=== PATIENT | male | born 1955 | race Caucasian/White ===

== ENCOUNTER → 2021-02-04 | Outpatient (CLI) | payer MEDICARE, OTHER ==
[~2021-02-04] MED LIST: DULOXETINE HCL60 MG PO; FENOFIBRATE160 MG PO; FLOMAX 0.4 MG0.4 MG PO; GABAPENTIN600 MG PO; HUMALOG100 UNIT/3 SC; HYDROCODON-ACE1 EAC4 PO; LEVOFLOXACIN500 MG PO; LOPRESSOR 25 MG25 MG PO; OXYCODONE HCL10 MG PO; OXYCONTIN20 MG PO; VICTOZA 3-0.6 MG/0.1 SQ; ZOCOR 40 MG TAB40 MG PO
== END ==
LOC: HEART 5 12-17 10:00
DX: I25.10 Atherosclerotic heart disease of native coronary artery without angina pectoris (principal); R55 Syncope and collapse; I08.1 Rheumatic disorders of both mitral and tricuspid valves
CPT/HCPCS: 93306

== ENCOUNTER → 2021-02-24 | Outpatient (CLI) | payer MEDICARE, OTHER ==
[2021-02-24 10:09] LABS: HEMOGLOBIN 15.2 gm/dl (14.0-17.5); RED BLOOD COUNT 4.69 M/UL (4.20-5.50); WHITE BLOOD COUNT 8.5 K/UL (4.5-11.0)
== END ==
LOC: LAB 09:30
PROVIDERS: Internal Medicine Cardiovascular Disease
DX: I25.5 Ischemic cardiomyopathy (principal); I25.10 Atherosclerotic heart disease of native coronary artery without angina pectoris; I10 Essential (primary) hypertension; I95.1 Orthostatic hypotension; R55 Syncope and collapse
CPT/HCPCS: 36415; 71046; 80048; 85025

== ENCOUNTER 2021-02-26 07:09 | Outpatient (CLI) | payer MEDICARE, OTHER ==
[~2021-02-26] VITALS: Ht 185.4 cm; Wt 104.3 kg
[2021-02-26] MEDS ORDERED: FENOFIBRATE160 MG PO (07:37)
[2021-02-26] MEDS ORDERED: OXYCODONE HCL10 MG PO (07:37)
[2021-02-26] MEDS ORDERED: OXYCONTIN20 MG PO (07:37)
[2021-02-26] MEDS ORDERED: LOPRESSOR 25 MG25 MG PO (07:40)
[2021-02-26] MEDS ORDERED: FLOMAX 0.4 MG0.4 MG PO (07:40)
[2021-02-26] MEDS ORDERED: DULOXETINE HCL60 MG PO (07:40)
[2021-02-26] MEDS ORDERED: ZOCOR 40 MG TAB40 MG PO (07:41)
[2021-02-26] MEDS ORDERED: GABAPENTIN600 MG PO (07:44)
[2021-02-26] MEDS ORDERED: VICTOZA 3-0.6 MG/0.1 SQ (07:49)
[2021-02-26] MEDS ORDERED: HUMALOG100 UNIT/3 SC (07:49)
--- NOTE | 2021-02-26 07:51 | NUR ---
PATIENT IS A VERY POOR MEDICATION HISTORIAN, I HAVE A LIST FROM HIS PHARMACY THAT CONTRAINDICATES WITH HIS STATED HOME MEDS, GABAPENTIN IS RECORDED ONCE DAILY PT STATES TAKES QID, HE SAYS HE TAKES TRESIBA, WHICH IS LISTED NOT BEEN FILLED FOR 2 MONTHS.
[2021-02-26] MEDS ORDERED: LEVOFLOXACIN500 MG PO (09:18)
[2021-02-26] MEDS ORDERED: HYDROCODON-ACE1 EAC4 PO (09:18)
== END 2021-02-27 10:07 | disposition home or self-care (01) ==
LOC: CATH 07:09 → PROG CARE 13:07 → CATH 02-27 10:07
DX: I25.5 Ischemic cardiomyopathy (principal); I25.10 Atherosclerotic heart disease of native coronary artery without angina pectoris; I10 Essential (primary) hypertension; I95.1 Orthostatic hypotension
CPT/HCPCS: 33249; 71045; 82962; 93620; 93641; 99152; 99153; C1722; C1730; C1766; C1777; J1644; J2250; J2270; J3010; J3370; J7040; J7050; J7070

== ENCOUNTER → 2021-09-29 | Outpatient (CLI) | payer MEDICARE | LOC: EXRD 14:29 | DX: I73.9 Peripheral vascular disease, unspecified (principal) | CPT/HCPCS: 93922; 93925 ==